=== PATIENT | male | born 1960 | race Caucasian/White ===

== ENCOUNTER 2016-08-25 09:41 | Outpatient (CLI) | payer OTHER ==
[2016-08-25 15:53] LABS: #Basophils 0.1 thou/uL (0.0-0.2); #Eosinphils 0.3 thou/uL (0.0-0.7); #Lymphocytes 1.7 thou/uL (1.20-3.40); #Monocytes 0.6 thou/uL (0.11-0.59); #Neutrophils 2.6 thou/uL (1.40-6.50); %Basophils 1.2 % (0.0-1.0); %Eosinophils 6.1 % (0.0-10.0); %Lymphocytes 32.1 % (21.0-51.0); %Monocytes 11.1 % (0.0-10.0); %Neutrophils 49.5 % (42.0-75.0); ALT (SGPT) 51 U/L (8-55); AST (SGOT) 55 U/L (5-34); Albumin 4.3 g/dL (3.5-5.0); Alkaline Phosphatase 57 U/L (40-150); Anion Gap 17 mmol/L (10-20); BUN (Urea Nitrogen) 8 mg/dL (8.4-25.7); Bilirubin, Total 0.6 mg/dL (0.2-1.2); CK (CPK) 327 U/L (30-200); Calc. Creatinine Clearance 0 mL/min (70-130); Calcium 8.9 mg/dL (7.8-10.44); Carbon Dioxide 22 mmol/L (22-29); Cardiac Risk 4.6 (Less than 4.5); Chloride 98 mmol/L (98-107); Cholesterol 175 mg/dl (< 200 Desired); Estimated GFR-MDRD 70; Glucose 84 mg/dL (70-105); HDL Cholesterol 38 mg/dL (>60 Neg Risk); Hemoglobin 14.9 g/dL (14.0-18.0); LDL Cholesterol, Calculated 100 mg/dL; MDiff Complete? YES; Macrocytosis SLIGHT = 6-15 cells (100X) (0-5/hpf); Mean Corpuscular HGB CONC 35.1 g/dL (32.0-36.0); Mean Corpuscular Hemoglobin 36.4 pg (27.0-31.0); Mean Platelet Volume 5.7 fL (7.4-10.4); PLT Morphology Comment Appears Adequate; PSA-Asymptomatic (SCREENING) 0.79 ng/mL (0-4.0); Platelet Count 233 thou/uL (130-400); Potassium 4.2 mmol/L (3.5-5.1); Protein, Total 7.3 g/dL (6.0-8.3); RBC Distribution Width 10.8 % (11.5-14.5); Red Blood Cell (RBC) Count 4.09 mill/uL (4.70-6.10); Sodium 133 mmol/L (136-145); Thyroid Stimulating Hormone 0.6896 uIU/mL (0.35-4.94); Triglycerides 186 mg/dL (Less than 150); White Blood Cell (WBC) Count 5.2 thou/uL (4.8-10.8)
== END 2016-08-25 09:42 | disposition home or self-care (01) ==
LOC: HPCALD 09:41
PROVIDERS: ATTEND Family Medicine
DX: Z12.5 Encounter for screening for malignant neoplasm of prostate (principal); I10 Essential (primary) hypertension; M62.82 Rhabdomyolysis
CPT/HCPCS: 36415; 80053; 80061; 82550; 84443; 85025; G0103

== ENCOUNTER 2018-10-06 10:57 | Outpatient (CLI) | payer BC ==
--- NOTE | 2018-10-07 08:41 | ULT ---
US Gallbladder RUQ: 10/06/2018 12:00 AM CLINICAL HISTORY: Elevated liver transaminase lab value. STUDY: Limited right upper quadrant ultrasound of abdomen. COMPARISON: None. FINDINGS: Liver: Size: Normal. Echogenicity: Increased Contour: Smooth. Mass: None. Bile ducts: No intrahepatic biliary dilatation. Common bile duct measures 7 mm. Gallbladder: Normal. Pancreas: Head, body, and tail appear normal. Right kidney: No pelvicalyceal dilatation. Right kidney measuring 10.9 cm in length. IMPRESSION: 1. Fatty liver 2. The common bile duct is upper limits of normal in size.
== END 2018-10-06 10:58 | disposition home or self-care (01) ==
LOC: BURULT 10:57
PROVIDERS: ATTEND Family Medicine
DX: R74.0 Nonspecific elevation of levels of transaminase and lactic acid dehydrogenase [LDH] (principal); K76.0 Fatty (change of) liver, not elsewhere classified
CPT/HCPCS: 76705

== ENCOUNTER 2019-08-10 11:01 | Emergency (ER) | payer BC ==
[2019-08-10] MEDS ORDERED: Lidocaine 1% PF 5 ML VIAL ONE (11:21)
== END 2019-08-10 12:00 | disposition home or self-care (01) ==
LOC: BURERS 11:01
DX: S81.811A Laceration without foreign body, right lower leg, initial encounter (principal); I10 Essential (primary) hypertension; F17.210 Nicotine dependence, cigarettes, uncomplicated; F32.9 Major depressive disorder, single episode, unspecified; Z79.899 Other long term (current) drug therapy; Z71.6 Tobacco abuse counseling; W22.8XXA Striking against or struck by other objects, initial encounter
CPT/HCPCS: 12002; 99406; J2001

== ENCOUNTER 2019-08-13 21:50 | Emergency (ER) | payer BC ==
[2019-08-13] MEDS ORDERED: traMADol HCl 50 MG TAB ONE (22:12)
[2019-08-13] MEDS ORDERED: Clindamycin 150 MG CAP ONE (22:12)
== END 2019-08-13 22:16 | disposition home or self-care (01) ==
LOC: BURERS 21:50
DX: T81.41XA Infection following a procedure, superficial incisional surgical site, initial encounter (principal); L03.115 Cellulitis of right lower limb; I10 Essential (primary) hypertension; F32.9 Major depressive disorder, single episode, unspecified; F17.210 Nicotine dependence, cigarettes, uncomplicated
CPT/HCPCS: 99283